=== PATIENT | female | born 1940 ===

== ENCOUNTER → 2025-10-10 08:57 | Outpatient (REF) | payer OTHER, SELFPAY ==
[2025-10-10 11:16] LABS: Glycohemoglobin (HgbA1c) 8.9 % (4.0-5.9)
== END ==
LOC: OLABP 08:57
PROVIDERS: ATTENDING PHYSICIAN Family Medicine
DX: I50.21 Acute systolic (congestive) heart failure (principal)
CPT/HCPCS: 36415; 83036

== ENCOUNTER → 2025-10-17 10:10 | Outpatient (REF) | payer OTHER, SELFPAY ==
[2025-10-17 11:36] LABS: Blood Urea Nitrogen 51 mg/dl (7-17); Calcium 8.3 mg/dl (8.4-10.2); Carbon Dioxide 34 mmol/L (22-30); Chloride 98 mmol/L (98-107); Glucose 89 mg/dl (70-99); Potassium 3.4 mmol/L (3.5-5.1); Sodium 134 mmol/L (135-145); eGFR 31.41
== END ==
LOC: OLABP 10:10
PROVIDERS: ATTENDING PHYSICIAN Family Medicine
DX: I50.21 Acute systolic (congestive) heart failure (principal); I25.10 Atherosclerotic heart disease of native coronary artery without angina pectoris; R05.9 Cough, unspecified; Z95.5 Presence of coronary angioplasty implant and graft; E11.9 Type 2 diabetes mellitus without complications; N18.30 Chronic kidney disease, stage 3 unspecified; Z86.73 Personal history of transient ischemic attack (TIA), and cerebral infarction without residual deficits; E03.9 Hypothyroidism, unspecified; F32.A Depression, unspecified; N32.81 Overactive bladder; R26.2 Difficulty in walking, not elsewhere classified
CPT/HCPCS: 36415; 80048

== ENCOUNTER → 2025-10-23 09:30 | Outpatient (REF) | payer OTHER, SELFPAY ==
[2025-10-23 11:15] LABS: Hematocrit 22.8 % (37.0-47.0); Hemoglobin 7.0 g/dL (12.0-16.0); Mean Corp Hgb Conc. 30.7 g/dL (33.0-37.0); Mean Corpuscular Volume 102.2 fL (81.0-99.0); Nucleated Red Blood Cells % 0 %; Platelet Count 240 10^3/uL (130-400); Red Cell Dist. Width 14.3 % (11.5-14.5)
[2025-10-23 11:28] LABS: ALT (SGPT) 22 U/L (0-35); AST (SGOT) 31 U/L (14-36); Albumin 3.1 g/dl (3.5-5.0); Alkaline Phosphatase 58 U/L (38-126); Blood Urea Nitrogen 70 mg/dl (7-17); Calcium 8.6 mg/dl (8.4-10.2); Carbon Dioxide 29 mmol/L (22-30); Chloride 99 mmol/L (98-107); Glucose 92 mg/dl (70-99); Potassium 3.5 mmol/L (3.5-5.1); Sodium 134 mmol/L (135-145); Total Protein 5.4 g/dl (6.3-8.2); eGFR 22.66
[2025-10-23 16:48] LABS: Hematocrit 26.9 % (37.0-47.0); Hemoglobin 8.0 g/dL (12.0-16.0); Mean Corp Hgb Conc. 29.7 g/dL (33.0-37.0); Mean Corpuscular Volume 103.1 fL (81.0-99.0); Nucleated Red Blood Cells % 0 %; Platelet Count 275 10^3/uL (130-400); Red Cell Dist. Width 14.2 % (11.5-14.5)
== END ==
LOC: OLABP 09:30
PROVIDERS: ATTENDING PHYSICIAN Family Medicine
DX: I50.21 Acute systolic (congestive) heart failure (principal)
CPT/HCPCS: 36415; 80053; 85025

== ENCOUNTER → 2025-10-27 12:15 | Outpatient (REF) | payer OTHER, SELFPAY ==
[2025-10-27 12:48] LABS: Hematocrit 29.3 % (37.0-47.0); Hemoglobin 8.8 g/dL (12.0-16.0); Mean Corp Hgb Conc. 30.0 g/dL (33.0-37.0); Mean Corpuscular Volume 103.5 fL (81.0-99.0); Nucleated Red Blood Cells % 0 %; Platelet Count 303 10^3/uL (130-400); Red Cell Dist. Width 14.6 % (11.5-14.5)
== END ==
LOC: OLABP 12:15
PROVIDERS: ATTENDING PHYSICIAN Family Medicine
DX: I50.21 Acute systolic (congestive) heart failure (principal)
CPT/HCPCS: 36415; 85025

== ENCOUNTER → 2025-10-28 10:16 | Outpatient (REF) | payer OTHER, SELFPAY ==
[2025-10-28 11:22] LABS: Blood Urea Nitrogen 60 mg/dl (7-17); Calcium 8.8 mg/dl (8.4-10.2); Carbon Dioxide 31 mmol/L (22-30); Chloride 102 mmol/L (98-107); Glucose 73 mg/dl (70-99); Potassium 3.8 mmol/L (3.5-5.1); Sodium 135 mmol/L (135-145); eGFR 29.21
== END ==
LOC: OLABP 10:16
PROVIDERS: ATTENDING PHYSICIAN Family Medicine
DX: I50.21 Acute systolic (congestive) heart failure (principal)
CPT/HCPCS: 36415; 80048

== ENCOUNTER → 2025-10-30 11:16 | Outpatient (REF) | payer OTHER, SELFPAY ==
[2025-10-30 12:01] LABS: Blood Urea Nitrogen 50 mg/dl (7-17); Calcium 8.5 mg/dl (8.4-10.2); Carbon Dioxide 30 mmol/L (22-30); Chloride 100 mmol/L (98-107); Glucose 90 mg/dl (70-99); Potassium 3.6 mmol/L (3.5-5.1); Sodium 134 mmol/L (135-145); eGFR 33.94
[2025-10-30 12:34] LABS: Hematocrit 22.2 % (37.0-47.0); Hemoglobin 6.7 g/dL (12.0-16.0); Mean Corp Hgb Conc. 30.2 g/dL (33.0-37.0); Mean Corpuscular Volume 103.3 fL (81.0-99.0); Nucleated Red Blood Cells % 0 %; Platelet Count 189 10^3/uL (130-400); Red Cell Dist. Width 14.0 % (11.5-14.5)
== END ==
LOC: OLABP 11:16
PROVIDERS: ATTENDING PHYSICIAN Family Medicine
DX: I50.21 Acute systolic (congestive) heart failure (principal)
CPT/HCPCS: 36415; 80048; 85025

== ENCOUNTER → 2025-10-31 09:32 | Outpatient (REF) | payer OTHER, SELFPAY ==
[2025-10-31 11:44] LABS: Hematocrit 22.5 % (37.0-47.0); Hemoglobin 6.7 g/dL (12.0-16.0); Mean Corp Hgb Conc. 29.8 g/dL (33.0-37.0); Mean Corpuscular Volume 102.7 fL (81.0-99.0); Nucleated Red Blood Cells % 0 %; Platelet Count 197 10^3/uL (130-400); Red Cell Dist. Width 14.3 % (11.5-14.5)
== END ==
LOC: OLABP 09:32
PROVIDERS: ATTENDING PHYSICIAN Family Medicine
DX: I50.21 Acute systolic (congestive) heart failure (principal)
CPT/HCPCS: 36415; 85025

== ENCOUNTER → 2025-11-04 13:08 | Outpatient (REF) | payer OTHER, SELFPAY ==
[2025-11-04 13:17] LABS: Hematocrit 28.3 % (37.0-47.0); Hemoglobin 9.1 g/dL (12.0-16.0); Mean Corp Hgb Conc. 32.2 g/dL (33.0-37.0); Mean Corpuscular Volume 96.9 fL (81.0-99.0); Nucleated Red Blood Cells % 0 %; Platelet Count 219 10^3/uL (130-400); Red Cell Dist. Width 15.3 % (11.5-14.5)
== END ==
LOC: OLABP 13:08
PROVIDERS: ATTENDING PHYSICIAN Family Medicine
DX: I50.21 Acute systolic (congestive) heart failure (principal)
CPT/HCPCS: 36415; 85025

== ENCOUNTER → 2025-11-10 09:25 | Outpatient (REF) | payer OTHER, SELFPAY ==
[2025-11-10 11:30] LABS: Hematocrit 23.5 % (37.0-47.0); Hemoglobin 7.7 g/dL (12.0-16.0); Mean Corp Hgb Conc. 32.8 g/dL (33.0-37.0); Mean Corpuscular Volume 94.8 fL (81.0-99.0); Nucleated Red Blood Cells % 0 %; Red Cell Dist. Width 14.5 % (11.5-14.5)
== END ==
LOC: OLABP 09:25
PROVIDERS: ATTENDING PHYSICIAN Family Medicine
DX: I50.21 Acute systolic (congestive) heart failure (principal)
CPT/HCPCS: 36415; 85025